=== PATIENT | female | born 1990 | race Caucasian/White ===

== ENCOUNTER 2016-08-21 11:03 | Emergency (ER) | payer SELFPAY ==
[~2016-08-21] VITALS: Ht 157.5 cm; Wt 45.5 kg
[2016-08-21 11:10] VITALS: Ht 157.5 cm; Wt 45.5 kg
[2016-08-21] MEDS ORDERED: ACETAMINOPHEN 500 MG TAB PO STA (13:52)
[2016-08-21] MEDS ORDERED: SOD CHLORIDE 0.9% 1,000 ML IV ONE (14:00)
[2016-08-21 14:42] LABS: ADD UMIC YES; URINE BILIRUBIN (Dip) NEGATIVE (NEGATIVE); URINE BLOOD (Dip) 3+ (NEGATIVE); URINE COLOR LT. YELLOW (YELLOW); URINE GLUCOSE (Dip) NEGATIVE (NEGATIVE); URINE KETONES (Dip) NEGATIVE (NEGATIVE); URINE LEUKOCYTE ESTERASE (Dip) 2+ (NEGATIVE); URINE NITRITE (Dip) NEGATIVE (NEGATIVE); URINE TOTAL PROTEIN (Dip) NEGATIVE (NEGATIVE); URINE UROBILINOGEN (Dip) 0.2 E.U./dL (0.1-1.0)
[2016-08-21 14:54] LABS: BACTERIA,URINE MODERATE
[2016-08-21] MEDS ORDERED: CEFTRIAXONE 1 GM/50 ML (PMX) 50 ML IVPB ONE (15:30)
[2016-08-21] MEDS ORDERED: CEFTRIAXONE 1 GM INJ IM ONE (15:30)
[2016-08-21] MEDS ORDERED: LIDOCAINE 1% (MDV) 20 ML INJ IM ONE (15:30)
[2016-08-21] MEDS ORDERED: CEPH-443 PO (15:46)
--- NOTE | 2016-08-21 17:09 | ERD ---
ER Documentation Chief Complaint Date/Time DATE: 08/21/16 TIME: 17:02 Chief Complaint Sent from for fiordaliza RICCI Patient is a 26-year-old female who presents to the ED with fever, dysuria 1 week. Patient states that she had dysuria and urgency 1 week ago and took Pyridium [id number]. She went to her primary care today who stated that she should come to the ER. Patient states that she has mild dysuria with no hematuria. She also has right CVA tenderness. She denies a history of kidney stones. She has had a UTI in the past. She denies abdominal pain, nausea, vomiting, diarrhea. She has no headache or dizziness. No other complaints. ROS All systems reviewed and are negative except as per history of present illness. Medications Home Meds Active Scripts Cephalexin* (Keflex*) 500 Mg Capsule, 500 MG PO BID for 10 Days, CAP Prov:JW JONES PA-C 08/21/16 Allergies Allergies: Coded Allergies: No Known Allergy (Unverified , 08/21/16) PMhx/Soc Medical and Surgical Hx: pt denies Medical Hx, pt denies Surgical Hx History of Surgery: No Anesthesia Reaction: No Hx Neurological Disorder: No Hx Respiratory Disorders: No Hx Cardiac Disorders: No Hx Psychiatric Problems: No Hx Miscellaneous Medical Probl: No Hx Alcohol Use: No Hx Substance Use: No Smoking Status: Current every day smoker FmHx Family History: No coronary disease, No diabetes, No other Physical Exam Vitals Vital Signs Date Time Temp Pulse Resp B/P Pulse Ox O2 Delivery O2 Flow Rate FiO2 08/21/16 11:10 100.8 112 20 120/76 98 Physical Exam GENERAL: Well-developed, well-nourished female. Appears in no acute distress. LUNG: Clear to auscultation bilaterally. No rhonchi, wheezing, rales or coarse breath sounds. HEART: Regular rate and rhythm. No murmurs, rubs or gallops. ABDOMEN: No scars, ecchymosis or rashes noted. Soft, nontender, and nondistended. Positive bowel sounds in all four quadrants. No rebound tenderness , no guarding. (-) McBurneys point tenderness. right CVA tenderness. Extremities: Equal pulses bilaterally. No peripheral clubbing, cyanosis or edema. No unilateral leg swelling. NEUROLOGIC: Alert and oriented. Moving all four extremities. 5/5 strength in all extremities. Normal speech. Steady gait. SKIN: Normal color. Warm and dry. No rashes or lesions. Capillary refill < 2 seconds Results 24 hrs Laboratory Tests Test 08/21/16 14:11 Urine Color LT. YELLOW Urine Clarity HAZY Urine pH 5.5 Urine Specific [place] <=1.005 Urine Ketones NEGATIVE Urine Nitrite NEGATIVE Urine Bilirubin NEGATIVE Urine Urobilinogen 0.2 E.U./dL Urine Leukocyte Esterase 2+ Urine Microscopic RBC 5-10/HPF Urine Microscopic WBC >200/HPF Urine Epithelial Cells FEW Urine Bacteria MODERATE Urine Hemoglobin 3+ Urine Glucose NEGATIVE% Urine Total Protein NEGATIVE Current Medications Medications (Trade) Dose Ordered Sig/Dania Route PRN Reason Start Time Stop Time Status Last Admin Dose Admin Acetaminophen 1000 mg 1,000 mg ONCE STAT PO 08/21/16 13:52 08/21/16 13:54 DC 08/21/16 14:19 Sodium Chloride (NS) 1,000 ml @ 1,000 mls/hr Q1H ONCE IV 08/21/16 14:00 08/21/16 14:59 DC 08/21/16 14:18 Ceftriaxone Sodium (Rocephin) 1 gm ONCE ONCE IM 08/21/16 15:30 08/21/16 15:30 DC Lidocaine 20 ml 20 ml ONCE ONCE IM 08/21/16 15:30 08/21/16 15:30 DC Ceftriaxone Sodium (Rocephin) 50 ml @ 100 mls/hr ONCE ONCE IVPB 08/21/16 15:30 08/21/16 15:58 DC 08/21/16 15:30 Procedures/MDM ER COURSE: I kept the patient and/or family informed of laboratory and diagnostic imaging results throughout the emergency room course. LABORATORY STUDIES Urinalysis shows 2+ leukocytes with no nitrites or hematuria. Negative test. Tylenol 1 g. Tolerated well with no adverse reaction. Rocephin 1 g. Tolerated well with no adverse reaction. MEDICAL DECISION MAKING: This is a 26-year-old female who presents with fever, dysuria. Vital signs were reviewed. Patient has a temperature of 100.8 and a pulse of 112. Patient is not hypoxic. Patient's urine showed 2+ leukocytes. Patient has CVA tenderness and is afebrile and has what is likely pyelonephritis. I reexamined patient after giving 1 L of fluids. She stated improvement in her symptoms. Patient is stable for outpatient therapy. Low suspicion for ovarian torsion, PID, tuboovarian abscess, ectopic , bowel obstruction, pyelonephritis, appendicitis, cervicitis, septic , molar , septic stone, obstructive stone, nephrolithiasis. DISCHARGE: At this time, patient is stable for discharge and outpatient management with no new complaints during the ER course. Patient was sent home with Keflex and to return to her primary care provider in 2 days.. Patient will be discharged home with instructions to recheck for new or worsening symptoms such as fever, nausea , weakness, LOC and to follow up with primary care in the next 1-2 days. Patient was advised to return to the ER for any new or worsening symptoms. Plan was discussed and patient and/or family understands and agrees. Home instructions were given. Departure Diagnosis: Primary Impression: Pyelonephritis Condition: Stable Patient Instructions: Pyelonephritis, Female (Adult) Additional Instructions: Call your primary care doctor TOMORROW for an appointment during the next 1-2 days.See the doctor sooner or return here if your condition worsens before your appointment time. JW JONES PA-C August 21, 2016 17:08
== END 2016-08-21 15:58 | disposition home or self-care (01) ==
LOC: FTE 11:03
DX: N12 Tubulo-interstitial nephritis, not specified as acute or chronic (principal); F17.210 Nicotine dependence, cigarettes, uncomplicated
CPT/HCPCS: 81001; 87086; 96374; 99284; J0696; J7030; 81003